=== PATIENT | male | born 1990 | race Caucasian/White ===

== ENCOUNTER 2025-06-15 02:38 | Emergency (ER) | payer BC ==
[~2025-06-15] VITALS: Ht 170.2 cm; Wt 129.1 kg
[2025-06-15 02:42] VITALS: BP 145/91; TEMP 97.8; O2SAT 96
== END 2025-06-15 03:14 | disposition left against medical advice (07) ==
LOC: M ED 02:38
DX: Z53.21 Procedure and treatment not carried out due to patient leaving prior to being seen by health care provider (principal)